=== PATIENT | female | born 1965 | race Caucasian/White ===

== ENCOUNTER 2016-08-31 16:37 | Emergency (ER) | payer OTHER, BC ==
[2016-08-31 16:43] VITALS: BP 149/82; PULSE 74; TEMP 97.9; BMI 23.3
--- NOTE | 2016-08-31 17:24 | PDOC ---
History of Present Illness <Juan Barnhart - Last Filed: 08/31/16 17:28> - General History Source: Patient Exam Limitations: No Limitations - History of Present Illness Initial Comments: 08/31/16 18:55 "The patient is a 51 year old female with past medical history of ESRD on dialysis TTS who presents to the ED with pain to her right pinky toe which began today. The patient states she was wearing her flip flops while getting ready for work when she stubbed her pinky toe. She does not recall what she stubbed it on. In the ED she complained of pain to the area and feels like her toe was dislocated. She states the pain has singificanly improved from this morning and she does not have much pain when ambulating currently. The patient denies any other complaints. She denies any recent illness or fevers. " <Lou Escobedo - Last Filed: 08/31/16 18:57> - General Chief Complaint: Pain, Acute Stated Complaint: foot pain Time Seen by Provider: 08/31/16 16:41 Past History - Past Medical History Dialysis: Yes GI Disorders: Yes (DIVERTICULITIS) HTN: Yes - Immunization History Immunization Up to Date: Yes - Psycho/Social/Smoking Cessation Hx Anxiety: No Suicidal Ideation: No Smoking History: Never smoked Have you smoked in the past 12 months: No Hx Alcohol Use: No Drug/Substance Use Hx: No Substance Use Type: None <Juan Barnhart - Last Filed: 08/31/16 17:28> <Lou Escobedo - Last Filed: 08/31/16 18:57> - Past Medical History Allergies/Adverse Reactions: Allergies Allergy/AdvReac Type Severity Reaction Status Date / Time basiliximab [From Simulect] Allergy Severe Difficulty Verified 08/31/16 16:38 Breathing acetaminophen [From Percocet] Allergy Intermediate Swelling Verified 08/31/16 16 :38 oxycodone HCl [From Percocet] Allergy Intermediate Swelling Verified 08/31/16 16 :38 Penicillins Allergy Mild Rash Verified 08/31/16 16:38 Home Medications: Ambulatory Orders Calcitriol 0.5 mcg PO ASDIR 09/26/13 Folic Acid - 1 mg PO DAILY 09/26/13 Metoprolol Tartrate [Lopressor -] 25 mg PO BID 09/26/13 Prednisone [Deltasone -] 5 mg PO DAILY 09/26/13 Sevelamer Carbonate [Renvela -] 800 mg PO TID 09/26/13 Review of Systems - Review of Systems Able to Perform ROS?: Yes Comments:: 08/31/16 18:55 "MUSCULOSKELETAL: Present: pain to right pinky toe No reported: Back pain, Neck Pain SKIN: No reported: Rash, Itching, Pallor, wound NEUROLOGIC: No reported: Focal Weakness, Paresthesias, weakneses" All Other Systems: Reviewed and Negative <Lou Escobedo - Last Filed: 08/31/16 18:57> *Physical Exam - Vital Signs Last Vital Signs Temp Pulse Resp BP Pulse Ox 97.9 F 74 18 149/82 97 08/31/16 16:37 08/31/16 16:37 08/31/16 16:37 08/31/16 16:37 08/31/16 16:37 <Juan Barnhart - Last Filed: 08/31/16 17:28> - Vital Signs Last Vital Signs Temp Pulse Resp BP Pulse Ox 97.9 F 74 18 149/82 97 08/31/16 16:37 08/31/16 16:37 08/31/16 16:37 08/31/16 16:37 08/31/16 16:37 - Physical Exam Comments: 08/31/16 18:55 GENERAL: The patient is awake, alert, and fully oriented, Nontoxic - in no acute distress. EXTREMITIES:Mild tenderness to right pinky toe, no edema, ecchymosis, or erythema, no tenderness to ankle, or 5th metatarsal. Normal range of motion, sensation intact, SKIN: Warm, Dry, normal turgor," <Lou Escobedo - Last Filed: 08/31/16 18:57> ED Treatment Course - RADIOLOGY Radiology Studies Ordered: Category Date Time Status FOOT-RIGHT [RAD] Stat Radiology 08/31/16 16:51 Completed <Juan Barnhart - Last Filed: 08/31/16 17:28> - RADIOLOGY Radiograph Interpretation: 08/31/16 18:56 Right foot x-ray as reviewed by Dr. Blancas reports loss of bone density. Heavy vascular calcifications. No acute pathology. <Lou Escobedo - Last Filed: 08/31/16 18:57> Medical Decision Making - Medical Decision Making 08/31/16 17:21 51y F hx of ESRD on dialysis presents with R 5th toe pain, s/p stubbing her toe this morning. Pt states pain has inmproved dramatically and is able to move it around, it is still mildly sure with certain motions and with palpation. On exam the pt has mild tenderness at the proximal phylanges. there is normal ROM, no ecchymosis, and no thenderess eslwere on foot. suspect possible ligamentous injury vs contusion will recommend supportive care including motrin elevation rest will have pt fu with pmd returnprecautions were discussed I discussed the physical exam findings, ancillary test results and final diagnoses with the patient. I answered all of the patient's questions. The patient was satisfied with the care received and felt comfortable with the discharge plan and treatment plan. The patient will call their primary care physician within 24 hours to arrange follow-up and will return to the Emergency Department with any new, persistent or worsening symptoms. <Juan Barnhart - Last Filed: 08/31/16 17:28> *DC/Admit/Observation/Transfer - Discharge Dispostion Admit: No <Juan Barnhart - Last Filed: 08/31/16 17:28> - Attestations Scribe Attestion: 08/31/16 18:57 Documentation prepared by Lou Escobedo, acting as medical front desk specialist for Juan Barnhart MD. <Lou Escobedo - Last Filed: 08/31/16 18:57> Diagnosis at time of Disposition: Toe pain, right - Discharge Dispostion Disposition: HOME Condition at time of disposition: Improved - Patient Instructions Printed Discharge Instructions: DI for Toe Sprain Additional Instructions: Return to the emergency department immediately with ANY new, persistent or worsening symptoms. Take tylenol as needed for pain. Keep your leg elevated. You MUST call and follow up with your doctor in 5 days for further evaluation of your symptoms. Results were discussed with you. Please make sure your doctor reviews the results of your emergency evaluation. Print Language: KYRGYZ
== END 2016-08-31 17:50 | disposition home or self-care (01) ==
LOC: FER 16:37
DX: M79.674 Pain in right toe(s) (principal); W22.8XXA Striking against or struck by other objects, initial encounter; Y93.89 Activity, other specified; Y92.9 Unspecified place or not applicable; I10 Essential (primary) hypertension; E11.9 Type 2 diabetes mellitus without complications
CPT/HCPCS: 73630-TC-RT; 99281-25

== ENCOUNTER 2017-03-16 00:19 | Emergency (ER) | payer OTHER, BC ==
[2017-03-16 00:31] VITALS: BP 159/44; PULSE 83; TEMP 98.5; BMI 21.9
--- NOTE | 2017-03-16 00:38 | PDOC ---
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 Patient has a history significant for chronic renal failure on hemodialysis. Patient's next dialysis tomorrow. While at work patient sustained a large skin tear to the dorsum of the hand that her fistulas and patient was concerned that she may develop an infection. Otherwise patient denied any complaints. PAST MEDICAL HISTORY: Hypertension, end-stage renal disease on hemodialysis PAST SURGICAL HISTORY: no significant history FAMILY HISTORY: no pertinant history SOCIAL HISTORY: Pt lives with family and is employed. MEDICATIONS: reviewed ALLERGIES: As per nursing notes Review of Systems General: No fevers or chills, no weakness, no weight loss HEENT: No change in vision. No sore throat,. No ear pain CardioVascular: No chest pain or shortness of breath Respiratory:No cough, or wheezing. Gastrointestinal: no nausea, vomitting, diarrhea or constipation, No rectal bleeding Genitourinary: No dysuria, hematuria, or frequency Musculoskeletal: No joint or muscle pain or swelling, skin tear as per history of present illness Neurologic: No headache, vertigo, dizziness or loss of consciousness Psychiatric: nor depression Skin: No rashes or easy bruising Endocrine: no increased thirst or abnormal weight change Allergic: no skin or latex allergy All other systems reviewed and normal GENERAL: The patient is awake, alert, and fully oriented, in no acute distress. HEAD: Normal with no signs of trauma. EYES: Pupils equal, round and reactive to light, extraocular movements intact, sclera anicteric, conjunctiva clear. EXTREMITIES: Left hand there is a V-shaped skin tear approximately 5-6 cm in length. With some venous oozing NEUROLOGICAL: Normal speech, normal gait. PSYCH: Normal mood, normal affect. SKIN: Warm, Dry, normal turgor, no rashes or lesions noted. 03/16/17 00:35 Procedure note Wound irrigated with sterile water And then closed with Dermabond patient tolerated well Patient's tetanus is up-to-date Past History - Past Medical History Allergies/Adverse Reactions: Allergies Allergy/AdvReac Type Severity Reaction Status Date / Time basiliximab [From Simulect] Allergy Severe Difficulty Verified 08/31/16 16:38 Breathing acetaminophen [From Percocet] Allergy Intermediate Swelling Verified 08/31/16 16 :38 oxycodone HCl [From Percocet] Allergy Intermediate Swelling Verified 08/31/16 16 :38 Penicillins Allergy Mild Rash Verified 08/31/16 16:38 Home Medications: Ambulatory Orders Calcitriol 0.5 mcg PO ASDIR 09/26/13 Folic Acid - 1 mg PO DAILY 09/26/13 Metoprolol Tartrate [Lopressor -] 25 mg PO BID 09/26/13 Prednisone [Deltasone -] 5 mg PO DAILY 09/26/13 Sevelamer Carbonate [Renvela -] 800 mg PO TID 09/26/13 COPD: No Dialysis: Yes GI Disorders: Yes (DIVERTICULITIS) HTN: Yes - Immunization History Immunization Up to Date: Yes - Suicide/Smoking/Psychosocial Hx Smoking History: Never smoked Have you smoked in the past 12 months: No Hx Alcohol Use: No Drug/Substance Use Hx: No Substance Use Type: None *Physical Exam - Vital Signs Last Vital Signs Temp Pulse Resp BP Pulse Ox 98.5 F 83 20 159/44 100 03/16/17 00:20 03/16/17 00:20 03/16/17 00:20 03/16/17 00:20 03/16/17 00:20 *DC/Admit/Observation/Transfer Diagnosis at time of Disposition: Skin tear of hand without complication Qualifiers: Encounter type: initial encounter Laterality: left Qualified Code(s): S61.412A - Laceration without foreign body of left hand, initial encounter - Discharge Dispostion Disposition: HOME Condition at time of disposition: Stable - Referrals Referrals: Amadeo Gonzalez MD [Primary Care Provider] - - Patient Instructions Printed Discharge Instructions: DI for Laceration Repair With Dermabond Additional Instructions: Read over and follow the Dermabond instructions the most important part is that you need to keep your wound dry for 72 hours and do not use any petroleum based products on the glue as it will cause it to come off too early. Return to the emergency department immediately with ANY new, persistent or worsening symptoms. Continue any medications as previously prescribed by your physician. You should follow up with your primary doctor as soon as possible regarding today's emergency department visit. . Please make sure your doctor reviews the results of your emergency evaluation. Thank you for coming to the Emergency Department today for your care. It was a pleasure to see you today. Please note that your evaluation is INCOMPLETE until you follow-up with your doctor. - Post Discharge Activity
== END 2017-03-16 01:03 | disposition home or self-care (01) ==
LOC: FER 00:19
PROC: 0HQGXZZ Repair Left Hand Skin, External Approach (ICD-10-PCS; principal; 2017-03-16)
DX: S61.412A Laceration without foreign body of left hand, initial encounter (principal); I12.0 Hypertensive chronic kidney disease with stage 5 chronic kidney disease or end stage renal disease; N18.6 End stage renal disease; Z99.2 Dependence on renal dialysis; Z88.0 Allergy status to penicillin; Z88.8 Allergy status to other drugs, medicaments and biological substances; W45.8XXA Other foreign body or object entering through skin, initial encounter; Y93.9 Activity, unspecified; Y92.239 Unspecified place in hospital as the place of occurrence of the external cause
CPT/HCPCS: 99281-25

== ENCOUNTER 2017-03-24 20:43 | Emergency (ER) | payer OTHER, BC ==
[2017-03-24 20:56] VITALS: BP 157/92; PULSE 75; TEMP 98.4; BMI 22.8
[2017-03-24] MEDS ORDERED: CIPROFLOXACIN HCL 0.3% OPHTH 2.5ML BOTTLE ONE (21:17)
--- NOTE | 2017-03-24 21:20 | PDOC ---
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 9 days ago, patient sustained a skin tear of the dorsum of the left hand (side of patient's fistula ) while here at work. Injury was evaluated and closed using skin adhesive. Since then, the patient has been keeping the area dry and has not noted any opening of the wound or discharge from the wound. There is narrow border of mild erythema surrounding the wound which has not changed in several days. She had some discomfort of the dorsum of the hand just distal to the wound yesterday but this resolved after dialysis was performed (dialysis performed Saturday//Saturday). She denies fever/chills/lymphangitic streaking. The only feature of the wound that concerns the patient is persistent dark discoloration along the longitudinal length of the skin tear that was repaired Also, unrelated to the patient's wound check, the patient has had increased discomfort (foreign body sensation) and mild erythema in the left eye for the last 48 hours. No purulent discharge or associated upper respiratory infection symptoms Past History - Past Medical History Allergies/Adverse Reactions: Allergies Allergy/AdvReac Type Severity Reaction Status Date / Time basiliximab [From Simulect] Allergy Severe Difficulty Verified 03/24/17 20:45 Breathing oxycodone HCl [From Percocet] Allergy Intermediate Swelling Verified 03/24/17 20 :45 Penicillins Allergy Mild Rash Verified 03/24/17 20:45 Home Medications: Ambulatory Orders Calcitriol 0.5 mcg PO ASDIR 09/26/13 Folic Acid - 1 mg PO DAILY 09/26/13 Metoprolol Tartrate [Lopressor -] 25 mg PO BID 09/26/13 Prednisone [Deltasone -] 5 mg PO DAILY 09/26/13 Sevelamer Carbonate [Renvela -] 800 mg PO TID 09/26/13 COPD: No Dialysis: Yes GI Disorders: Yes (DIVERTICULITIS) HTN: Yes - Immunization History Immunization Up to Date: Yes - Suicide/Smoking/Psychosocial Hx Smoking History: Never smoked Have you smoked in the past 12 months: No Information on smoking cessation initiated: No Hx Alcohol Use: No Drug/Substance Use Hx: No Substance Use Type: None Review of Systems - Review of Systems Able to Perform ROS?: Yes Comments:: 12 point review of systems is negative except for what is noted in the history of present illness *Physical Exam - Vital Signs Last Vital Signs Temp Pulse Resp BP Pulse Ox 98.4 F 75 18 157/92 97 03/24/17 20:45 03/24/17 20:45 03/24/17 20:45 03/24/17 20:45 03/24/17 20:45 - Physical Exam Comments: GENERAL: Adult female, alert and oriented 3, in no acute distress EYES: PERRLA, EOMI, sclera anicteric, right eye normal; left eye with moderate erythema of the conjunctiva; pupil and anterior chamber normal EXTREMITIES: Left upper extremity-3.5 cm horizontal closed wound dorsal wrist, with skin adhesive on surface, central purplish dark coloration Surrounding faint 0.5 cm border of erythema Non tender, non- edematous, nonfluctuant No other significant erythema/ edema/tenderness Remainder the extremity exam is normal NEUROLOGICAL: Cranial nerves II through XII grossly intact. Normal speech. No focal neurological deficits. SKIN: Warm, Dry, normal turgor, Medical Decision Making - Medical Decision Making Impression: 1- left wrist wound appears to be healing well. Dark discoloration likely hematoma below skin adhesive; doubt significant necrosis of skin. No evidence of wound infection. 2-left eye erythema/discomfort may be early acute conjunctivitis. will start Cipro ophthalmic solution. 2 drops placed in left eye and 2 drops every 4 hours while awake should continue for the next week Patient will follow-up with her physician at next scheduled hemodialysis, SaturdayMarch 26. If there is progressive erythema/pain/edema around wound , she should return to the emergency room Follow-up ophthalmologic evaluation should occur within the next week *DC/Admit/Observation/Transfer Diagnosis at time of Disposition: Skin tear of hand without complication Qualifiers: Encounter type: initial encounter Laterality: left Qualified Code(s): S61.412A - Laceration without foreign body of left hand, initial encounter Conjunctivitis Qualifiers: Conjunctivitis type: acute Acute conjunctivitis type: unspecified Laterality: left Qualified Code(s): H10.32 - Unspecified acute conjunctivitis, left eye - Discharge Dispostion Disposition: HOME Condition at time of disposition: Stable - Referrals Referrals: Amadeo Gonzalez MD [Primary Care Provider] - - Patient Instructions Additional Instructions: Cipro ophthalmic solution: 2 drops left eye every 4 hours while awake for the next week 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
== END 2017-03-24 21:26 | disposition home or self-care (01) ==
LOC: FER 20:43
DX: S61.412A Laceration without foreign body of left hand, initial encounter (principal); H10.32 Unspecified acute conjunctivitis, left eye; I12.0 Hypertensive chronic kidney disease with stage 5 chronic kidney disease or end stage renal disease; N18.6 End stage renal disease; Z99.2 Dependence on renal dialysis
CPT/HCPCS: 99282-25

== ENCOUNTER 2017-03-29 22:25 | Emergency (ER) | payer OTHER, BC ==
[2017-03-29 22:29] VITALS: BP 148/88; PULSE 89; TEMP 99.3; BMI 22.8
--- NOTE | 2017-03-29 23:14 | PDOC ---
History of Present Illness - General Chief Complaint: Revisit,Wound Recheck Stated Complaint: WOUND CHECK - History of Present Illness Initial Comments: 03/30/17 00:47 here for wound check no fevers itchy pmh: esrd o/e well healing wound with small margin of erythema no discharge no fluctuence a/p well healing wound continue local wound care Past History - Past Medical History Allergies/Adverse Reactions: Allergies Allergy/AdvReac Type Severity Reaction Status Date / Time basiliximab [From Simulect] Allergy Severe Difficulty Verified 03/24/17 20:45 Breathing oxycodone HCl [From Percocet] Allergy Intermediate Swelling Verified 03/24/17 20 :45 Penicillins Allergy Mild Rash Verified 03/24/17 20:45 Home Medications: Ambulatory Orders Calcitriol 0.5 mcg PO ASDIR 09/26/13 Folic Acid - 1 mg PO DAILY 09/26/13 Metoprolol Tartrate [Lopressor -] 25 mg PO BID 09/26/13 Prednisone [Deltasone -] 5 mg PO DAILY 09/26/13 Sevelamer Carbonate [Renvela -] 800 mg PO TID 09/26/13 COPD: No Dialysis: Yes GI Disorders: Yes (DIVERTICULITIS) HTN: Yes - Immunization History Immunization Up to Date: Yes - Suicide/Smoking/Psychosocial Hx Smoking History: Never smoked Have you smoked in the past 12 months: No Hx Alcohol Use: No Drug/Substance Use Hx: No Substance Use Type: None *Physical Exam - Vital Signs Last Vital Signs Temp Pulse Resp BP Pulse Ox 99.3 F 89 16 148/88 100 03/29/17 22:27 03/29/17 22:27 03/29/17 22:27 03/29/17 22:27 03/29/17 22:27 *DC/Admit/Observation/Transfer Diagnosis at time of Disposition: HEALING WOUND - Discharge Dispostion Disposition: HOME Condition at time of disposition: Stable - Referrals - Patient Instructions - Post Discharge Activity
== END 2017-03-29 23:00 | disposition home or self-care (01) ==
LOC: FER 22:25
DX: Z48.01 Encounter for change or removal of surgical wound dressing (principal)
CPT/HCPCS: 99281-25

== ENCOUNTER 2018-05-31 01:21 | Emergency (ER) | payer OTHER, BC ==
[2018-05-31 01:28] VITALS: BP 167/93; PULSE 87; TEMP 97.5; BMI 22.8
--- NOTE | 2018-05-31 02:03 | PDOC ---
History of Present Illness - General Chief Complaint: Palpitations Stated Complaint: PALPITATIONS Time Seen by Provider: 05/31/18 01:26 - History of Present Illness Initial Comments: 05/31/18 02:12 This 53-year-old woman with history of ESRD, HTN, paroxysmal A. fib, presents with episode of palpitations this evening. Patient states that she has had intermittent episodes of irregular heartbeat for the last few months. Patient states that these palpitations felt different than atrial fibrillation episodes. Current arrhythmia occurs typically when patient is fatigued or stressed. 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 As she was leaving in her car in the very cold temperatures outside, she found herself shivering with extended episode of palpitations. She also felt heartbeat stronger than usual which is not typical of her usual episodes. No chest pain, shortness of breath, lightheadedness noted. 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 Patient is receiving hemodialysis 3 times a week, next scheduled tomorrow Past History - Past Medical History Allergies/Adverse Reactions: Allergies Allergy/AdvReac Type Severity Reaction Status Date / Time basiliximab [From Simulect] Allergy Severe Difficulty Verified 03/24/17 20:45 Breathing oxycodone HCl [From Percocet] Allergy Intermediate Swelling Verified 03/24/17 20 :45 Penicillins Allergy Mild Rash Verified 03/24/17 20:45 Home Medications: Ambulatory Orders Calcitriol [Rocaltrol] 0.5 mcg PO ASDIR 09/26/13 Folic Acid - 1 mg PO DAILY 09/26/13 Metoprolol Tartrate [Lopressor -] 25 mg PO BID 09/26/13 Sevelamer Carbonate [Renvela -] 800 mg PO TID 09/26/13 predniSONE [Deltasone -] 5 mg PO DAILY 09/26/13 Biotin 300 mg PO DAILY 05/31/18 Docusate Sodium [Colace -] 2 cap PO BID 05/31/18 Doxercalciferol [Hectorol] 8 mcg IV ASDIR 05/31/18 Epoetin Hank [Epogen] 2,500 unit IJ ASDIR 05/31/18 Ergocalciferol [Vitamin D2] 50,000 unit PO Q7D@1000 05/31/18 Lactobacillus Rhamnosus GG [Culturelle] 1 each PO DAILY 05/31/18 Lutein/Zeaxanthin [Lutein-Zeaxanthin 20-1 mg Sfgl] 1 each PO DAILY 05/31/18 Multivitamin [One-Daily Multi-Vitamin] 1 each PO DAILY 05/31/18 l [place]/B Bifidum/B Longum [[facility] [employer] [facility] Capsule] 1 each PO DAILY Cardiac Disorders: Yes (PAFIB) COPD: No Dialysis: Yes GI Disorders: Yes (DIVERTICULITIS) Disorders: Yes (ESRD) HTN: Yes Other medical history: OSTEOPOROSIS, SECONDARY ADRENAL INSUFFICIENCY - Immunization History Immunization Up to Date: Yes - Suicide/Smoking/Psychosocial Hx Smoking History: Never smoked Have you smoked in the past 12 months: No Hx Alcohol Use: No Drug/Substance Use Hx: No Substance Use Type: None Review of Systems - Review of Systems Able to Perform ROS?: Yes Comments:: 12 point review of systems is negative except for what is noted in the history of present illness *Physical Exam - Vital Signs Last Vital Signs Temp Pulse Resp BP Pulse Ox 97.5 F L 87 18 167/93 100 05/31/18 01:26 05/31/18 01:26 05/31/18 01:26 05/31/18 01:26 05/31/18 01:26 - Physical Exam Comments: GENERAL: Adult female, alert and oriented 3, in no acute distress HEAD: Normal with no signs of trauma. EYES: PERRLA, EOMI, sclera anicteric, conjunctiva clear. LUNGS: Breath sounds equal, clear to auscultation bilaterally. No wheezes, and no crackles. HEART:Regular rate and rhythm, normal S1 and S2 , rub or gallop. . 12-lead electrocardiogram is performed with initial interpretation by me: Sinus rhythm at 76 bpm. [place], intervals and wave forms are all normal. No evidence of acute ST or T-wave abnormalities. No acute cardiac arrhythmia present Moderate Sedation - Procedure Monitoring Vital Signs: Procedure Monitoring Vital Signs Temperature 97.5 F L 05/31/18 01:26 Pulse Rate 87 05/31/18 01:26 Respiratory Rate 18 05/31/18 01:26 Blood Pressure 167/93 05/31/18 01:26 O2 Sat by Pulse Oximetry (%) 100 05/31/18 01:26 ED Treatment Course - LABORATORY CBC & Chemistry Diagram: 05/31/18 02:25 05/31/18 02:15 - ADDITIONAL ORDERS Additional order review: Laboratory Results 05/31/18 02 02:25 02:15 Sodium 139 Potassium 4.1 Chloride 102 Carbon Dioxide 29 Anion Gap 9 BUN 55 H Creatinine 6.4 H Creat Clearance w eGFR 6.78 Random Glucose 96 Calcium 9.6 Total Bilirubin 0.5 AST 27 ALT 43 Alkaline Phosphatase 142 H Creatine Kinase 26 Troponin I < 0.02 Total Protein 7.4 Albumin 4.0 TSH 3.43 05/31/18 02:25 RBC 3.57 L MCV 104.7 H MCHC 34.4 RDW 14.2 MPV 8.7 Neutrophils % 48.8 Lymphocytes % 32.3 Monocytes % 14.7 H Eosinophils % 3.7 Basophils % 0.5 Medical Decision Making - Medical Decision Making 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 As noted above , this occurred after the end of a shift and in very cold ambient temperatures. Patient had no associated symptoms during the time of her palpitations ;once she was inside and warmed, all sensation of extra beats and more prominent beats resolved. Patient now is comfortable and 12-lead electrocardiogram shows no evidence of arrhythmia. Laboratory evaluation of CBC/chemistry profile/troponin/TSH reveals no significant abnormalities CBC except for elevated MCV (which is at baseline). BUN/creatinine of 55/6.4 is consistent with ESRD and is also consistent with baseline. Alkaline phosphatase slightly elevated as compared to baseline at 142. Troponin is not elevated (less than 0.03) TSH is normal at 3.43 Results discussed with the patient. She continues to be comfortable without recurrence of protracted palpitations or forceful heartbeats. She will follow-up with her operations representative (Dr. Jacquelin Mccarthy) within the next week and return to the ER if she has persistent palpitations or develops chest pain/shortness of breath/lightheadedness *DC/Admit/Observation/Transfer Diagnosis at time of Disposition: Palpitations - Discharge Dispostion Disposition: HOME Condition at time of disposition: Stable - Referrals Referrals: Amadeo Gonzalez MD [Primary Care Provider] - - Patient Instructions Printed Discharge Instructions: DI for Palpitations Additional Instructions: Rest; continue relaxation techniques as discussed Return to ER if you have persistent palpitations or develop chest pain/ shortness of breath/lightheadedness Follow-up with your operations representative within the next 3-5 days as discussed - Post Discharge Activity
[2018-05-31 02:56] LABS: BASO % 0.5 % (0-2.0); EOS % 3.7 % (0-4.5); HEMATOCRIT 37.4 % (32.4-45.2); HEMOGLOBIN 12.8 GM/dL (10.7-15.3); LYMPH % 32.3 % (8-40); MCHC 34.4 g/dl (32.0-36.0); MEAN CELL VOLUME 104.7 fl (80-96); MEAN PLT VOLUME 8.7 fl (7.5-11.1); MONO % 14.7 % (3.8-10.2); NEUT % 48.8 % (42.8-82.8); PLATELET COUNT 156 K/MM3 (134-434); RBC 3.57 M/mm3 (3.60-5.2); RDW 14.2 % (11.6-15.6); WHITE BLOOD COUNT 5.6 K/mm3 (4.0-10.0)
[2018-05-31 03:33] LABS: ALK PHOS 142 U/L (45-117); ANION GAP 9 MMOL/L (8-16); BILIRUBIN,TOTAL 0.5 mg/dL (0.2-1); BLOOD UREA NITROGEN 55 mg/dL (7-18); CALCIUM 9.6 mg/dL (8.5-10.1); CHLORIDE 102 mmol/L (98-107); CO2 29 mmol/L (21-32); CREATININE 6.4 mg/dL (0.55-1.3); GLUCOSE,RANDOM 96 mg/dL (74-106); POTASSIUM 4.1 mmol/L (3.5-5.1); SGOT/AST 27 U/L (15-37); SGPT/ALT 43 U/L (13-61); SODIUM 139 mmol/L (136-145); TOT PROT 7.4 g/dl (6.4-8.2)
--- NOTE | 2018-05-31 16:51 | EKG ---
Test Reason : Blood Pressure : / mmHG Vent. Rate : 076 BPM Atrial Rate : 076 BPM P-R Int : 182 ms QRS Dur : 096 ms QT Int : 394 ms P-R-T Axes : 050 -25 014 degrees QTc Int : 443 ms NORMAL SINUS RHYTHM NORMAL ECG NO PREVIOUS ECGS AVAILABLE Confirmed by Peggy Patel ([id number]) on 05/31/2018 4:50:26 PM Referred By: MD SAAB Confirmed By:Peggy Patel
== END 2018-05-31 03:54 | disposition home or self-care (01) ==
LOC: FER 01:21
DX: R00.2 Palpitations (principal); I48.0 Paroxysmal atrial fibrillation; I12.0 Hypertensive chronic kidney disease with stage 5 chronic kidney disease or end stage renal disease; N18.6 End stage renal disease; Z99.2 Dependence on renal dialysis; M81.0 Age-related osteoporosis without current pathological fracture; Z88.0 Allergy status to penicillin; Z88.8 Allergy status to other drugs, medicaments and biological substances
CPT/HCPCS: 36415; 80053; 82550; 84443; 84484; 85025; 93005; 99282-25

== ENCOUNTER 2019-07-03 06:25 | Day surgery (SDC) | payer OTHER, BC ==
[2019-07-01 11:50] VITALS: BMI 22.6
--- NOTE | 2019-07-03 06:50 | HP ---
History & Physical Update - Physical Physical: No Change - Assessment Assessment: No Change - Plan Plan: No Change (H&P reviwed, no changes, for hysteroscopy D&C)
[2019-07-03] MEDS ORDERED: SUCCINYLCHOLINE CHLORIDE 200 MG/10 ML SYRINGE ONE (07:26)
[2019-07-03] MEDS ORDERED: PROPOFOL 20 ML ONE ×2 (07:26)
[2019-07-03] MEDS ORDERED: MIDAZOLAM HCL 2 MG/2 ML SINGLE DOSE VIAL ONE ×2 (07:26→08:22)
[2019-07-03] MEDS ORDERED: ceFAZolin SODIUM 1 GM VIAL IVPB ONE (08:16)
[2019-07-03] MEDS ORDERED: HYDROCORTISONE SOD SUCCINATE 2 ML ONE (08:18)
[2019-07-03] MEDS ORDERED: ACETAMINOPHEN INJECTION 100 ML IVPB ONE (08:59)
[2019-07-03] MEDS ORDERED: ONDANSETRON 4 MG/2 ML VIAL IVPUSH PRN (09:00)
[2019-07-03] MEDS ORDERED: oxyCODONE HCL 5 MG TABLET PO PRN (09:00)
[2019-07-03] MEDS ORDERED: ACETAMINOPHEN 1000 MG/100 ML VIAL (NON FORMULARY) IVPB ONE (09:01)
[2019-07-03] MEDS ORDERED: ONDANSETRON 4 MG/2 ML VIAL ONE (10:11)
[2019-07-03 10:50] VITALS: TEMP 98.1
[2019-07-03 12:35] VITALS: BP 133/63; PULSE 84
--- NOTE | 2019-07-03 18:02 | OP ---
Operative Note - Note: Operative Date: 07/03/19 Pre-Operative Diagnosis: thicken EM, PMB Operation: EUA, failed hysteroscopy D&C , biopsy of ant. vaginal wall Findings: atrophic vagina , cx stenosis, os could not be identified , ant. vaginal wall granulation tissue with easy bleeding Surgeon: aSúl Pimentel Anesthesia: General Specimens Removed: ant. vaginal wall mucosa Estimated Blood Loss (mls): 30 Drains & Tubes with Location: none Blood Volume Replaced (mls): 0 Operative Report Dictated: Yes
--- NOTE | 2019-07-06 16:35 | PATH ---
Surgical Pathology Report Patient Name: TITO CRAWLEY Med. Rec. #: [id number] /Age/Gender: 1965 (Age: 54) / F Account: [id number] Location: [facility] Taken: 07/03/2019 Received: 07/03/2019 Reported: 07/06/2019 Physicians: Saúl Pimentel M.D. Specimen(s) Received ANTERIOR VAGINAL MUCOSA Clinical History Endometrium thickened Final Diagnosis ANTERIOR VAGINAL MUCOSA, EXCISION: PREDOMINANTLY DENUDED VAGINAL SQUAMOUS MUCOSA AND UNDERLYING STROMA WITH VASCULAR CONGESTION. SEE COMMENT. Comment: Scanty squamous epithelium/mucosa for review shows no significant pathologic findings. Deeper levels have been examined. Suggest clinical correlation. Electronically Signed Louann Lomeli M.D. Gross Description Received in formalin, labeled "anterior vaginal mucosa" are 2 soliz, irregular portions of soft tissue measuring 0.1 and 0.3 cm. in greatest dimension. The specimens are submitted in toto in one cassette. /07/03/[address] [facility]07/03/2019
--- NOTE | 2019-07-07 18:55 | OP ---
DATE OF OPERATION: 07/03/2019 PREOPERATIVE DIAGNOSIS: Postmenopausal bleeding, thickened endometrium. POSTOPERATIVE DIAGNOSIS: Postmenopausal bleeding, thickened endometrium. Anterior vaginal wall mucosa without granulation tissue. SURGEON: Shira Pimentel MD. ANESTHESIA: General. ANESTHESIOLOGIST: Jeronimo Zuñiga MD. ESTIMATED BLOOD LOSS: 50 mL. DESCRIPTION OF PROCEDURE: Patient was taken to operating room where adequate general anesthesia position examination under anesthesia revealed external genitalia to be normal, vagina was atrophic. There was granulation and erythema of the anterior vaginal mucosa right underneath the urethra, no masses or any lesion is seen, but the area appeared to be hyperemic and easy bleeding to touch. Cervix, no gross lesion. Uterus, normal size. Adnexa, no masses were palpable. Then with a weighted speculum in the vagina, cervix was atrophic and unable to be visualized. No cervical os was found. Several times with the lachrymal gland probe tried to enter the os, but os could not be identified. Therefore after several tries of finding the os and dilating the os, the procedure was terminated secondary to cervical stenosis and unable to see the cervical os, and then the anterior vaginal mucosa biopsy was done, and Surgicel was placed at the anterior vaginal wall mucosa for hemostasis. Patient tolerated procedure well, left the OR in good condition. SHIRA PIMENTEL M.D. [id number]
== END 2019-07-03 13:45 | disposition home or self-care (01) ==
LOC: JASU-SURG 06:25
PROVIDERS: ATTEND Obstetrics & Gynecology
PROC: 0UDB7ZZ Extraction of Endometrium, Via Natural or Artificial Opening (ICD-10-PCS; principal; 2019-07-03 08:00)
DX: N92.0 Excessive and frequent menstruation with regular cycle (principal); N88.2 Stricture and stenosis of cervix uteri; Z53.8 Procedure and treatment not carried out for other reasons; I12.0 Hypertensive chronic kidney disease with stage 5 chronic kidney disease or end stage renal disease; N18.6 End stage renal disease
CPT/HCPCS: 36415; 84132; 88305-TC; 94760; J0131

== ENCOUNTER 2021-05-10 18:43 | Emergency (ER) | payer OTHER, BC ==
[2021-05-10 18:54] VITALS: BP 131/75; PULSE 81; TEMP 98.8; BMI 23.6
[2021-05-10] MEDS ORDERED: IBUPROFEN 200 MG TABLET PO ONE (19:29)
[2021-05-10] MEDS ORDERED: IBUPROFEN 400 MG TABLET (FP) PO ONE (19:31)
== END 2021-05-10 19:41 | disposition home or self-care (01) ==
LOC: FER 18:43
DX: S80.01XA Contusion of right knee, initial encounter (principal); S80.02XA Contusion of left knee, initial encounter; S76.911A Strain of unspecified muscles, fascia and tendons at thigh level, right thigh, initial encounter; W01.0XXA Fall on same level from slipping, tripping and stumbling without subsequent striking against object, initial encounter
CPT/HCPCS: 73523-TC-FY; 73562-TC-LT-FY; 73562-TC-RT-FY; 99285-25